=== PATIENT | female | born 1955 | race Two or more races ===

== ENCOUNTER 2023-12-15 20:33 | Emergency (ER) | payer OTHER, MEDICAID ==
[~2023-12-15] VITALS: Ht 162.6 cm; Wt 99.0 kg
[2023-12-16] MEDS ORDERED: ACE3T PO (01:30)
[2023-12-16] MEDS: KETOROLAC TROMETH 60MG/2ML VIAL IM ONE (02:12)
[2023-12-16 02:15] VITALS: BP 139/61; PULSE 69; RESP 18; TEMP 97.8
[2023-12-16 02:37] VITALS: O2SAT 94
== END 2023-12-16 02:43 | disposition home or self-care (01) ==
LOC: ER 20:33
DX: M54.31 Sciatica, right side (principal); M79.604 Pain in right leg; E11.9 Type 2 diabetes mellitus without complications; I10 Essential (primary) hypertension; Z90.710 Acquired absence of both cervix and uterus
CPT/HCPCS: 96372; 99283; J1885